=== PATIENT | male | born 1980 | race Caucasian/White ===

== ENCOUNTER 2018-07-30 12:15 | Emergency (ER) | payer MEDICAID ==
[~2018-07-30] VITALS: Ht 182.9 cm; Wt 139.3 kg
[2018-07-30 12:21] VITALS: Ht 182.9 cm; Wt 139.3 kg
[2018-07-30 13:40] VITALS: BP 145/89
== END 2018-07-30 13:40 | disposition home or self-care (01) ==
LOC: ED 12:15
DX: R00.2 Palpitations (principal); R07.89 Other chest pain; R51 Headache
CPT/HCPCS: J1885

== ENCOUNTER 2019-01-02 12:54 | Emergency (ER) | payer MEDICAID ==
[~2019-01-02] VITALS: Ht 182.9 cm; Wt 144.2 kg
[2019-01-02 13:19] VITALS: Ht 182.9 cm; Wt 144.2 kg
[2019-01-02 14:02] LABS: BASOPHIL % 0.3 % (0-2); PLATELET COUNT 257 x10^3mcL (130-400); RED CELL DISTRIBUTION WIDTH 14.8 % (11.5-14.5)
[2019-01-02 14:05] LABS: CALCIUM 8.4 mg/dL (8.5-10.1); CARBON DIOXIDE 26.9 mmol/L (21-32); CHLORIDE SERUM 106 mmol/L (98-107); CREATININE SERUM 0.8 mg/dL (0.7-1.3); GFR1 > 60 mL/min; GLUCOSE SERUM 132 mg/dL (74-106); POTASSIUM SERUM 3.5 mmol/L (3.5-5.1); SODIUM SERUM 143 mmol/L (136-145)
[2019-01-02 14:11] LABS: ALBUMIN 3.7 g/dL (3.4-5.0); ALKALINE PHOSPHATASE 71 U/L (46-116); ALT/SGPT 56 U/L (16-63); AST/SGOT 31 U/L (15-37); BILIRUBIN TOTAL 0.6 mg/dL (0.20-1.00); TOTAL PROTEIN, SERUM 7.8 g/dL (6.4-8.2)
[2019-01-02 15:08] VITALS: BP 125/777
== END 2019-01-02 15:18 | disposition home or self-care (01) ==
LOC: ED 12:54
DX: G44.209 Tension-type headache, unspecified, not intractable (principal); F41.9 Anxiety disorder, unspecified; G47.00 Insomnia, unspecified; R00.2 Palpitations; R03.0 Elevated blood-pressure reading, without diagnosis of hypertension
CPT/HCPCS: 36415; 82962